=== PATIENT | male | born 1985 | race Two or more races ===

== ENCOUNTER 2023-01-27 12:23 | Emergency (ER) | payer SELFPAY ==
[~2023-01-27] VITALS: Ht 182.9 cm; Wt 92.0 kg
[2023-01-27 14:12] VITALS: BP 120/94; PULSE 68; RESP 18; TEMP 97.5; O2SAT 99
[2023-01-27] MEDS ORDERED: CEPH500C PO (14:34)
== END 2023-01-27 14:50 | disposition home or self-care (01) ==
LOC: ER 12:23
DX: S51.811A Laceration without foreign body of right forearm, initial encounter (principal); W22.8XXA Striking against or struck by other objects, initial encounter; Y93.89 Activity, other specified; Y92.89 Other specified places as the place of occurrence of the external cause; Y99.8 Other external cause status
CPT/HCPCS: 12002